=== PATIENT | female | born 2000 | race Caucasian/White ===

== ENCOUNTER 2018-05-31 09:40 | Outpatient (CLI) | payer OTHER | END 2018-05-31 16:22 | disposition HB | LOC: OBS/DEL 09:40 | DX: O60.03 Preterm labor without delivery, third trimester (principal); O26.893 Other specified pregnancy related conditions, third trimester; R10.2 Pelvic and perineal pain; Z34.03 Encounter for supervision of normal first pregnancy, third trimester ==

== ENCOUNTER 2018-07-03 14:15 | Inpatient (IN) | payer OTHER ==
[~2018-07-03] VITALS: Ht 160 cm; Wt 105.7 kg
[2018-07-22] MEDS ORDERED: PRENATAL FORMU1 EAC1 PO (09:11)
== END 2018-07-25 16:45 | DRG 766 ==
LOC: LDR 07-22 05:36 → OB/GYN 07-22 05:36
PROVIDERS: Obstetrics & Gynecology
PROC: 4A1HXCZ Monitoring of Products of Conception, Cardiac Rate, External Approach (ICD-10-PCS; 2018-07-22)
PROC: 3E033VJ Introduction of Other Hormone into Peripheral Vein, Percutaneous Approach (ICD-10-PCS; 2018-07-22)
PROC: 4A033R1 Measurement of Arterial Saturation, Peripheral, Percutaneous Approach (ICD-10-PCS; 2018-07-22)
PROC: 10D00Z1 Extraction of Products of Conception, Low, Open Approach (ICD-10-PCS; principal; 2018-07-22 17:00)
DX: O61.0 Failed medical induction of labor (principal); O62.1 Secondary uterine inertia; Z3A.40 40 weeks gestation of pregnancy; Z37.0 Single live birth

== ENCOUNTER 2018-07-06 13:18 | Outpatient (CLI) | payer OTHER | END 2018-07-06 14:56 | disposition home or self-care (01) | LOC: OBS/DEL 13:18 | DX: O23.593 Infection of other part of genital tract in pregnancy, third trimester (principal); N75.8 Other diseases of Bartholin's gland; Z34.83 Encounter for supervision of other normal pregnancy, third trimester ==

== ENCOUNTER 2019-06-14 20:35 | Inpatient (IN) | payer OTHER ==
[~2019-06-14] VITALS: Ht 160 cm; Wt 238.0 kg
[~2019-06-14 20:35] MED LIST: PRENATAL FORMU1 EAC1 PO
[2019-06-14] MEDS ORDERED: AMPICILLIN TRI500 MG PO (21:02)
[2019-06-14] MEDS ORDERED: OBSTETRIX DHA1 EACH PO (21:02)
== END 2019-06-19 14:23 | disposition home or self-care (01) | DRG 785 ==
LOC: OBS/DEL 20:35 → LDR 06-15 10:47 → O/R 06-16 13:08 → OB/GYN 06-16 15:20
PROVIDERS: ADMIT Obstetrics & Gynecology
PROC: 4A1HXCZ Monitoring of Products of Conception, Cardiac Rate, External Approach (ICD-10-PCS; 2019-06-15)
PROC: 0UL70ZZ Occlusion of Bilateral Fallopian Tubes, Open Approach (ICD-10-PCS; 2019-06-16)
PROC: 10D00Z1 Extraction of Products of Conception, Low, Open Approach (ICD-10-PCS; principal; 2019-06-16 13:00)
DX: O82 Encounter for cesarean delivery without indication (principal); Z3A.37 37 weeks gestation of pregnancy; Z37.0 Single live birth; Z30.2 Encounter for sterilization